=== PATIENT | female | born 1950 | race African-American/Black ===

== ENCOUNTER 2017-03-12 10:15 | Outpatient (CLI) | payer MEDICARE, MEDICAID ==
--- NOTE | 2017-03-12 12:23 | RAD ---
LUMBAR SPINE THREE VIEWS: Comparison: 08-25-05 FINDINGS: Three views lumbar spine. Five lumbar type vertebral bodies. Mild rightward curvature. Mild degenerative disease at L3-4 and L 4-5. There is 4 mm anterolisthesis of L4 upon L5. Vacuum disc phenomenon at all L3-4 and L4-5 is not ed. Note is made of a gastric lap band and cholecystectomy clips. IMPRESSION: Degenerative changes at L3-4 and L4-5. Grade I anterolisthesis of L4 upon L5. MRI if clinically jessica anted. POS: TISHA
== END 2017-03-12 10:16 | disposition home or self-care (01) ==
LOC: RAD-FRANK 10:15
PROVIDERS: ATTEND Nurse Practitioner Family
DX: M54.5 Low back pain (principal); M47.896 Other spondylosis, lumbar region
CPT/HCPCS: 72100

== ENCOUNTER 2019-02-03 11:40 | Outpatient (CLI) | payer MEDICARE ==
--- NOTE | 2019-02-03 11:57 | RAD ---
EXAM: Two views chest PROVIDED CLINICAL HISTORY: Cough COMPARISON: 09/02/2010 FINDINGS: Cardiac silhouette remains enlarged. The pulmonary vasculature is within normal limits. Endotracheal tube was noted on the prior exam which is no longer visualized. There is persistent mild elevation of the right hemidiaphragm with volume loss at the lateral right lung base. Lungs are otherwise clear . Degenerative changes are seen in the spine. There has been no other interval change from prior study. IMPRESSION: 1. No acute cardiopulmonary process. 2. Cardiomegaly..
== END 2019-02-03 11:41 | disposition home or self-care (01) ==
LOC: RAD-FRANK 11:40
PROVIDERS: ATTEND Nurse Practitioner Family
DX: J20.9 Acute bronchitis, unspecified (principal); I51.7 Cardiomegaly
CPT/HCPCS: 71046

== ENCOUNTER 2023-12-22 10:10 | Day surgery (SDC) | payer MEDICARE, MEDICAID ==
[2023-12-22] MEDS ORDERED: Lidocaine 1% PF 5 ML VIAL ONE (12:55)
[2023-12-22] MEDS ORDERED: PROPOFOL 200 MG/20 ML VIAL ONE (12:55)
== END 2023-12-22 14:25 | disposition home or self-care (01) ==
LOC: SDC 10:10
PROVIDERS: ATTEND Internal Medicine Gastroenterology
PROC: 0DBN8ZZ Excision of Sigmoid Colon, Via Natural or Artificial Opening Endoscopic (ICD-10-PCS; principal; 2023-12-22)
DX: Z12.11 Encounter for screening for malignant neoplasm of colon (principal); K51.40 Inflammatory polyps of colon without complications; E66.01 Morbid (severe) obesity due to excess calories; J45.909 Unspecified asthma, uncomplicated; E11.9 Type 2 diabetes mellitus without complications; K21.9 Gastro-esophageal reflux disease without esophagitis; E78.5 Hyperlipidemia, unspecified; E03.9 Hypothyroidism, unspecified; E66.9 Obesity, unspecified; M19.90 Unspecified osteoarthritis, unspecified site; Z90.710 Acquired absence of both cervix and uterus; Z90.49 Acquired absence of other specified parts of digestive tract; Z90.89 Acquired absence of other organs; Z98.51 Tubal ligation status; Z79.4 Long term (current) use of insulin; Z79.890 Hormone replacement therapy; Z79.899 Other long term (current) drug therapy; Z68.43 Body mass index [BMI] 50.0-59.9, adult
CPT/HCPCS: 36416; 88305; J2704